=== PATIENT | female | born 1950 ===

== ENCOUNTER 2018-04-19 11:44 | Outpatient (CLI) | payer OTHER ==
[2018-04-19] MEDS ORDERED: LEVO-T25 MCG PO (16:52)
[2018-04-19] MEDS ORDERED: DIOVAN HCT 3201 EAC1 PO (16:52)
[2018-04-19] MEDS ORDERED: TOPROL XL25 MG PO (16:53)
== END 2018-04-19 11:57 | disposition home or self-care (01) ==
LOC: RAD 11:44
DX: I10 Essential (primary) hypertension (principal); C50.919 Malignant neoplasm of unspecified site of unspecified female breast